=== PATIENT | male | born 1945 ===

== ENCOUNTER 2019-04-04 08:51 | Emergency (ER) | payer OTHER, MEDICARE ==
[2019-04-04 09:35] VITALS: BP 140/80
[2019-04-04 09:50] LABS: Basophils % (Auto) 0.4 % (0.0-1.8); Eosinophils # (Auto) 0.1 K/mm3 (0.0-0.4); Eosinophils % (Auto) 1.2 % (0.0-4.3); Hematocrit 38.8 % (35.5-45.6); Hemoglobin 13.4 gm/dl (11.8-15.2); Lymphocytes # (Auto) 4.1 K/mm3 (1.2-5.4); Lymphocytes % (Auto) 45.7 % (13.4-35.0); Mean Corpuscular HGB Conc 35 % (32-34); Mean Corpuscular Volume 99 fl (84-94); Monocytes # (Auto) 0.6 K/mm3 (0.0-0.8); Monocytes % (Auto) 6.5 % (0.0-7.3); Platelet Count 142 K/mm3 (140-440); Red Blood Count 3.94 M/mm3 (3.65-5.03); Red Cell Distribution Width 13.3 % (13.2-15.2)
[2019-04-04 10:02] LABS: BUN/Creatinine Ratio 19; Blood Urea Nitrogen 19 mg/dL (9-20); Calcium 8.8 mg/dL (8.4-10.2); Hemolysis Index 3
[2019-04-04 10:27] LABS: Bilirubin,Urine NEG (Negative); Blood,Urine MOD (Negative); Color,Urine Yellow (Yellow); Mucus,Urine FEW /HPF; Urobilinogen,Urine < 2.0 mg/dL (<2.0); WBC,Urine < 1.0 /HPF (0.0-6.0)
--- NOTE | 2019-04-04 11:00 | Emergency Department Report ---
HPI - General Chief Complaint: Abdominal Pain Time Seen by Provider: 04/04/19 09:42 - HPI HPI: 73-year-old male presents to the emergency department for 2 different complaints. First, the patient says that she's been having about 4-5 hours of diarrhea since this morning. He had a banana, black coffee and a glass of water and says that he was having consistent diarrhea after that. However this has stopped upon presentation to the emergency department. The patient's , who is in the room as well, says that he really is here for a refill of his psychiatric medications. Neither the patient nor the can give me the diagnosis of the patient's psychiatric history but says that he is on Risperdal, clonazepam and another medication. He has been out of this medication for at least 2 months since they moved here from [place]. He has [employer] insurance but has not yet seen anybody and has an appointment coming up on but a ppears to be for primary care. He has a past medical history that also includes rheumatoid arthritis, hypertension and non-insulin dependent diabetes. Patient denies any suicidal or homicidal ideations or any hallucinations. It sounds like bipolar disorder is a possibility as they describe some behavior that sounds like he is acting both manic and depressed at different times. ED Past Medical Hx - Past Medical History Previous Medical History?: Yes Hx Diabetes: Yes Hx Arthritis: Yes (RA) - Surgical History Past Surgical History?: Yes Additional Surgical History: hernia repair. tonsillectomy. circumcision - Social History Smoking Status: Current Every Day Smoker ED Review of Systems ROS: Stated complaint: ABD PAIN Other details as noted in HPI Comment: All other systems reviewed and negative Constitutional: denies: chills, fever Eyes: denies: eye pain, vision change ENT: denies: ear pain, throat pain Respiratory: denies: cough, shortness of breath Cardiovascular: denies: chest pain, palpitations Gastrointestinal: diarrhea. denies: abdominal pain Genitourinary: denies: urgency, dysuria Musculoskeletal: denies: back pain, arthralgia Skin: denies: rash, lesions Psychiatric: denies: auditory hallucinations, visual hallucinations, homicidal thoughts, suicidal thoughts Physical Exam - Physical Exam Vital Signs: Vital Signs 04/04/19 04/04/19 09:32 09:34 Temperature 97.7 F Pulse Rate 75 Respiratory 18 18 Rate Blood Pressure 140/80 [Left] O2 Sat by Pulse 98 98 Oximetry Physical Exam: GENERAL: The patient is well-developed well-nourished. HENT: Normocephalic. Atraumatic. Patient has moist mucous membranes. EYES: Extraocular motions are intact. NECK: Supple. Trachea is midline. CHEST/LUNGS: Clear to auscultation. There is no respiratory distress noted. HEART/CARDIOVASCULAR: Regular. There is no tachycardia. There is no murmur. ABDOMEN: Abdomen is soft, nontender. Patient has normal bowel sounds. There is no abdominal distention. SKIN: Skin is warm and dry. NEURO: The patient is awake, alert, and oriented. The patient is cooperative. The patient has no focal neurologic deficits. Normal speech. MUSCULOSKELETAL: There is no tenderness or deformity. There is no evidence of acute injury. PSYCH: Patient has some pressured speech and can be labile. ED Course Vital Signs 04/04/19 04/04/19 09:32 09:34 Temperature 97.7 F Pulse Rate 75 Respiratory 18 18 Rate Blood Pressure 140/80 [Left] O2 Sat by Pulse 98 98 Oximetry ED Medical Decision Making - Lab Data Result diagrams: 04/04/19 09:27 04/04/19 09:27 - Medical Decision Making This patient originally came in saying that he was here for some diarrhea but it appears that his main reason was that he was brought in by his roommate and he needs psychiatric medication refill. They were unable to give information about his psychiatric diagnosis but based on his observed behavior and some pre- arrival information, it appears consistent with some type of bipolar disorder or schizoaffective. He denies any auditory or visual hallucinations or any homicidal or suicidal ideations. The patient is friendly/jovial but deathly has some pressured speech and some rambling thought processes. Regarding the diarrhea, the patient says that this has stopped since presentation and has not returned during his ED course. Some labs were obtained that were unremarkable. Vital signs stable throughout his ED course. The patient was seen by the psychiatric instructor substitute cosmetology, Nona, who agrees that the patient does not necessarily meet criteria to be made a 1013 for prior involuntary inpatient psychiatric admission. The patient himself says that he is not interested in voluntary psychiatric admission. While waiting in the emergency department, and between evaluations, the patient does display some intermittent and/or transient agitation but is redirectable. At this time, the patient does appear able to perform ADLs and does not appear to be a danger to himself or others. He has been given a referral for a few different outpatient psychiatric referrals. Since it has been greater than 2 months since he was last on the psychiatric medications, he has been instructed to see an outpatient psychiatry clinic or practice to get restarted. However they have also been instructed to return to the emergency Department with any worsening of his symptoms or any acute distress. - Differential Diagnosis schizophrenia, schizoaffective, bipolar disorder Critical Care Time: No Critical care attestation.: If time is entered above; I have spent that time in minutes in the direct care of this critically ill patient, excluding procedure time. ED Disposition Clinical Impression: Medical clearance for psychiatric admission, Encounter for medication refill Diarrhea Qualifiers: Diarrhea type: unspecified type Qualified Code(s): R19.7 - Diarrhea, unspecifi ed Disposition: DC- TO HOME OR SELFCARE Is pt being admited?: No Condition: Stable Additional Instructions: Please follow up with any of the outpatient psychiatric referrals that you were given regarding a refill of your psychiatric medications. Please continue with your appointment with [place] for your primary care physician. Return to the emergency Department with any worsening of your symptoms or any acute distress. Referrals: [facility] [Outside] - 2-3 Days [facility] [Outside] - 2-3 Days
[2019-04-04 11:17] LABS: Amphetamine Screen,Urine PRESUMPTIVE NEGATIVE; Benzodiazepines Screen,Urine PRESUMPTIVE NEGATIVE; Cannabinoid Screen,Urine PRESUMPTIVE NEGATIVE; Cocaine Screen,Urine PRESUMPTIVE NEGATIVE; Methadone Screen,Urine PRESUMPTIVE NEGATIVE; Opiate Screen,Urine PRESUMPTIVE NEGATIVE
== END 2019-04-04 14:05 | disposition home or self-care (01) ==
LOC: ED 08:51
DX: R19.7 Diarrhea, unspecified (principal); Z76.0 Encounter for issue of repeat prescription; E11.9 Type 2 diabetes mellitus without complications; I10 Essential (primary) hypertension; F32.9 Major depressive disorder, single episode, unspecified; R47.89 Other speech disturbances; M06.9 Rheumatoid arthritis, unspecified; F17.200 Nicotine dependence, unspecified, uncomplicated; Z90.89 Acquired absence of other organs; Z98.890 Other specified postprocedural states
CPT/HCPCS: 36415; 80048; 80307; 80320; 81001; 85025; 99284; G0480

== ENCOUNTER 2019-04-06 15:37 | Emergency (ER) | payer OTHER, MEDICARE ==
--- NOTE | 2019-04-06 15:57 | Emergency Department Report ---
Blank Doc - Documentation Documentation: This is a 73-year-old male that presents with for aggressive behavior. S rom has been out of his psych medications. Denies any SI/HI. This initial assessment/diagnostic orders/clinical plan/treatment(s) is/are subject to change based on patient's health status, clinical progression and re- assessment by fellow clinical providers in the ED. Further treatment and workup at subsequent clinical providers discretion. Patient/guardians urged not to elope from the ED as their condition may be serious if not clinically assessed and managed. Initial orders include: 1- Patient sent to MAIN ED for further evaluation and treatment 2- labs 3- UA
[2019-04-06] MEDS ORDERED: HALDOL ONE (16:57)
[2019-04-06] MEDS ORDERED: ATIVAN ONE (16:57)
[2019-04-06] MEDS ORDERED: ATIVAN IV ONE (17:01)
[2019-04-06] MEDS ORDERED: HALDOL IM ONE ×2 (17:02→19:09)
[2019-04-06 17:26] LABS: Hematocrit 41.5 % (35.5-45.6); Hemoglobin 13.7 gm/dl (11.8-15.2); Mean Corpuscular HGB Conc 33 % (32-34); Mean Corpuscular Volume 101 fl (84-94); Platelet Count 162 K/mm3 (140-440); Red Blood Count 4.12 M/mm3 (3.65-5.03); Red Cell Distribution Width 13.8 % (13.2-15.2)
[2019-04-06 17:48] LABS: BUN/Creatinine Ratio 24; Blood Urea Nitrogen 26 mg/dL (9-20); Calcium 9.5 mg/dL (8.4-10.2); Hemolysis Index 5
[2019-04-06 18:45] LABS: RBC Morphology Normal; Total Cells Counted 100
[2019-04-06 21:09] LABS: Amphetamine Screen,Urine PRESUMPTIVE NEGATIVE; Benzodiazepines Screen,Urine PRESUMPTIVE NEGATIVE; Cannabinoid Screen,Urine PRESUMPTIVE NEGATIVE; Cocaine Screen,Urine PRESUMPTIVE NEGATIVE; Methadone Screen,Urine PRESUMPTIVE NEGATIVE; Opiate Screen,Urine PRESUMPTIVE NEGATIVE
[2019-04-06 21:18] LABS: Bilirubin,Urine NEG (Negative); Blood,Urine NEG (Negative); Color,Urine Yellow (Yellow); Hyaline Casts,Urine 3 /LPF; Mucus,Urine FEW /HPF; Urobilinogen,Urine < 2.0 mg/dL (<2.0)
--- NOTE | 2019-04-06 23:28 | Emergency Department Report ---
ED Psych HPI - General Chief Complaint: Medical Clearance Stated Complaint: MEDICATION REFILL Time Seen by Provider: 04/06/19 15:55 Source: patient, family Mode of arrival: Stretcher Limitations: No Limitations - History of Present Illness Initial Comments: Mr. Nieves is a 73 yo male with hx of HTN, DM, paranoid schizophrenia who presents with delusions and hallucinations for the past several days according to ex-. Mr. Nieves was diagnosed with mental illness since the 1970s. He's had 3 previous hospitalizations for mental illness including one in [facility], [facility] and [facility]. Mr. Nieves recently moved from [place] to [place] 2 months ago to be with his son. His ex- also moved with him. Ex- is his caregiver, clinical decision maker and roommate. Due to agitation and aggressive behavior by Mr. Nieves. Son recently moved of the home. His behavior has escalated since that time. Mr. Nieves states that "she is not my ." Mr. Nieves is receives primary care at [facility]. He has establised care with a primary care physician. He has been without psychiatric medications for the past 2 months. Medications recalled per include Risperdal, clonazepam and amantadine. He has yet to establish care with a psychiatrist. He is currently retired. He previously owned an import-export business. He has 2 children one son and one daughter. Son Lives in [place]. Daughter Lives in [place]. He Has Several Grandchildren. Complaint: other (delusional thoughts hallucinations) -: Gradual, days(s) (3) Associated Psychiatric Symptoms: racing thoughts, auditory hallucinations, delusions History of same: Yes Quality: constant Improves With: none Worsens With: none Context: not taking psychiatric Associated Symptoms: denies other symptoms Treatments Prior to Arrival: none - Related Data Home Medications Medication Instructions Recorded Confirmed Last Taken Unobtainable 04/06/19 04/06/19 Unknown Allergies Allergy/AdvReac Type Severity Reaction Status Date / Time No Known Allergies Allergy Verified 04/06/19 17:00 ED Review of Systems ROS: Stated complaint: MEDICATION REFILL Other details as noted in HPI Comment: All other systems reviewed and negative Constitutional: denies: fever, malaise Respiratory: denies: cough Cardiovascular: denies: chest pain ED Past Medical Hx - Past Medical History Previous Medical History?: Yes Hx Hypertension: Yes Hx Diabetes: Yes Hx Arthritis: Yes (RA) Hx Psychiatric Treatment: Yes (schizophrenia,bipolar) - Surgical History Past Surgical History?: Yes Additional Surgical History: hernia repair. tonsillectomy. circumcision - Social History Smoking Status: Current Every Day Smoker Substance Use Type: None - Medications Home Medications: Home Medications Medication Instructions Recorded Confirmed Last Taken Type Unobtainable 04/06/19 04/06/19 Unknown History ED Physical Exam - General Limitations: Language Barrier General appearance: alert, in no apparent distress, other (agitated and appears healthy) - Head Head exam: Present: atraumatic, normocephalic - Eye Eye exam: Present: normal appearance - ENT ENT exam: Present: mucous membranes moist - Neck Neck exam: Present: normal inspection, full ROM - Respiratory Respiratory exam: Present: normal lung sounds bilaterally. Absent: respiratory distress, wheezes, rhonchi - Cardiovascular Cardiovascular Exam: Present: regular rate, normal rhythm, normal heart sounds. Absent: systolic murmur, diastolic murmur, rubs, gallop - GI/Abdominal GI/Abdominal exam: Present: soft, normal bowel sounds. Absent: distended, tenderness, guarding, rebound - Rectal Rectal exam: Present: deferred - Extremities Exam Extremities exam: Present: normal inspection - Neurological Exam Neurological exam: Present: alert, oriented X3 - Psychiatric Psychiatric exam: Present: normal affect, normal mood, agitated - Skin Skin exam: Present: warm, dry, intact, normal color. Absent: rash ED Course Vital Signs 04/06/19 15:55 Temperature 97.8 F Pulse Rate 87 Respiratory 87 H Rate Blood Pressure 141/92 O2 Sat by Pulse 98 Oximetry ED Medical Decision Making - Lab Data Result diagrams: 04/06/19 17:18 04/06/19 17:18 Laboratory Results - last 24 hr 04/06/19 04/06/19 04/06/19 17:18 17:18 17:18 WBC 11.3 H RBC 4.12 Hgb 13.7 Hct 41.5 MCV 101 H MCH 33 H MCHC 33 RDW 13.8 Plt Count 162 Lymph # Construction Stonemason Add Manual Diff Complete Total Counted 100 Seg Neuts % (Manual) 48.0 Band Neutrophils % 0 Lymphocytes % (Manual) 42.0 H Reactive Lymphs % (Man) 0 Monocytes % (Manual) 8.0 H Eosinophils % (Manual) 1.0 Basophils % (Manual) 1.0 Metamyelocytes % 0 Myelocytes % 0 Promyelocytes % 0 Blast Cells % 0 Nucleated RBC % Not Reportable Seg Neutrophils # Man 5.4 Band Neutrophils # 0.0 Lymphocytes # (Manual) 4.7 Abs React Lymphs (Man) 0.0 Monocytes # (Manual) 0.9 H Eosinophils # (Manual) 0.1 Basophils # (Manual) 0.1 Metamyelocytes # 0.0 Myelocytes # 0.0 Promyelocytes # 0.0 Blast Cells # 0.0 WBC Morphology Not Reportable Hypersegmented Neuts Not Reportable Hyposegmented Neuts Not Reportable Hypogranular Neuts Not Reportable Smudge Cells Not Reportable Toxic Granulation Not Reportable Toxic Vacuolation Not Reportable Dohle Bodies Not Reportable Pelger-Huet Anomaly Not Reportable Paulo Rods Not Reportable Platelet Estimate Not Reportable Clumped Platelets Not Reportable Plt Clumps, EDTA Not Reportable Large Platelets Not Reportable Giant Platelets Not Reportable Platelet Satelliting Not Reportable Plt Morphology Comment Not Reportable RBC Morphology Normal Dimorphic RBCs Not Reportable Polychromasia Not Reportable Hypochromasia Not Reportable Poikilocytosis Not Reportable Anisocytosis Not Reportable Microcytosis Not Reportable Macrocytosis Not Reportable Spherocytes Not Reportable Pappenheimer Bodies Not Reportable Sickle Cells Not Reportable Target Cells Not Reportable Tear Drop Cells Not Reportable Ovalocytes Not Reportable Helmet Cells Not Reportable Wu-Normal Bodies Not Reportable [place] Rings Not Reportable Julio Cesar Cells Not Reportable Bite Cells Not Reportable Crenated Cell Not Reportable Elliptocytes Not Reportable Acanthocytes (Spur) Not Reportable Rouleaux Not Reportable Hemoglobin C Crystals Not Reportable Schistocytes Not Reportable Malaria parasites Not Reportable Moi Bodies Not Reportable Hem Pathologist Commnt No Sodium 138 Potassium 3.6 Chloride 99.5 Carbon Dioxide 18 L Anion Gap 24 BUN 26 H Creatinine 1.1 Estimated GFR > 60 BUN/Creatinine Ratio 24 Glucose 238 H Calcium 9.5 Urine Color Urine Turbidity Urine pH Ur Specific [place] Urine Protein Urine Glucose (UA) Urine Ketones Urine Blood Urine Nitrite Urine Bilirubin Urine Urobilinogen Ur Leukocyte Esterase Urine WBC (Auto) Urine RBC (Auto) Hyaline Casts Urine Mucus Salicylates < 0.3 L Urine Opiates Screen Urine Methadone Screen Acetaminophen Ur Barbiturates Screen Ur Phencyclidine Scrn Ur Amphetamines Screen U Benzodiazepines Scrn Urine Cocaine Screen U Marijuana (THC) Screen Drugs of Abuse Note Plasma/Serum Alcohol 04/06/19 04/06/19 04/06/19 17:18 17:18 20:13 WBC RBC Hgb Hct MCV MCH MCHC RDW Plt Count Lymph # Add Manual Diff Total Counted Seg Neuts % (Manual) Band Neutrophils % Lymphocytes % (Manual) Reactive Lymphs % (Man) Monocytes % (Manual) Eosinophils % (Manual) Basophils % (Manual) Metamyelocytes % Myelocytes % Promyelocytes % Blast Cells % Nucleated RBC % Seg Neutrophils # Man Band Neutrophils # Lymphocytes # (Manual) Abs React Lymphs (Man) Monocytes # (Manual) Eosinophils # (Manual) Basophils # (Manual) Metamyelocytes # Myelocytes # Promyelocytes # Blast Cells # WBC Morphology Hypersegmented Neuts Hyposegmented Neuts Hypogranular Neuts Smudge Cells Toxic Granulation Toxic Vacuolation Dohle Bodies Pelger-Huet Anomaly Paulo Rods Platelet Estimate Clumped Platelets Plt Clumps, EDTA Large Platelets Giant Platelets Platelet Satelliting Plt Morphology Comment RBC Morphology Dimorphic RBCs Polychromasia Hypochromasia Poikilocytosis Anisocytosis Microcytosis Macrocytosis Spherocytes Pappenheimer Bodies Sickle Cells Target Cells Tear Drop Cells Ovalocytes Helmet Cells Wu-Normal Bodies [place] Rings [place] Cells Bite Cells Crenated Cell Elliptocytes Acanthocytes (Spur) Rouleaux Hemoglobin C Crystals Schistocytes Malaria parasites Moi Bodies Hem Pathologist Commnt Sodium Potassium Chloride Carbon Dioxide Anion Gap BUN Creatinine Estimated GFR BUN/Creatinine Ratio Glucose Calcium Urine Color Yellow Urine Turbidity Clear Urine pH 5.0 Ur Specific [place] 1.013 Urine Protein 30 mg/dl Urine Glucose (UA) Neg Urine Ketones Neg Urine Blood Neg Urine Nitrite Neg Urine Bilirubin Neg Urine Urobilinogen < 2.0 Ur Leukocyte Esterase Neg Urine WBC (Auto) 1.0 Urine RBC (Auto) 3.0 Hyaline Casts 3 Urine Mucus Few Salicylates Urine Opiates Screen Urine Methadone Screen Acetaminophen < 5.0 L Ur Barbiturates Screen Ur Phencyclidine Scrn Ur Amphetamines Screen U Benzodiazepines Scrn Urine Cocaine Screen U Marijuana (THC) Screen Drugs of Abuse Note Plasma/Serum Alcohol < 0.01 04/06/19 20:13 WBC RBC Hgb Hct MCV MCH MCHC RDW Plt Count Lymph # Add Manual Diff Total Counted Seg Neuts % (Manual) Band Neutrophils % Lymphocytes % (Manual) Reactive Lymphs % (Man) Monocytes % (Manual) Eosinophils % (Manual) Basophils % (Manual) Metamyelocytes % Myelocytes % Promyelocytes % Blast Cells % Nucleated RBC % Seg Neutrophils # Man Band Neutrophils # Lymphocytes # (Manual) Abs React Lymphs (Man) Monocytes # (Manual) Eosinophils # (Manual) Basophils # (Manual) Metamyelocytes # Myelocytes # Promyelocytes # Blast Cells # WBC Morphology Hypersegmented Neuts Hyposegmented Neuts Hypogranular Neuts Smudge Cells Toxic Granulation Toxic Vacuolation Dohle Bodies Pelger-Huet Anomaly Paulo Rods Platelet Estimate Clumped Platelets Plt Clumps, EDTA Large Platelets Giant Platelets Platelet Satelliting Plt Morphology Comment RBC Morphology Dimorphic RBCs Polychromasia Hypochromasia Poikilocytosis Anisocytosis Microcytosis Macrocytosis Spherocytes Pappenheimer Bodies Sickle Cells Target Cells Tear Drop Cells Ovalocytes Helmet Cells Wu-Normal Bodies [place] Rings Julio Cesar Cells Bite Cells Crenated Cell Elliptocytes Acanthocytes (Spur) Rouleaux Hemoglobin C Crystals Schistocytes Malaria parasites Moi Bodies Hem Pathologist Commnt Sodium Potassium Chloride Carbon Dioxide Anion Gap BUN Creatinine Estimated GFR BUN/Creatinine Ratio Glucose Calcium Urine Color Urine Turbidity Urine pH Ur Specific [place] Urine Protein Urine Glucose (UA) Urine Ketones Urine Blood Urine Nitrite Urine Bilirubin Urine Urobilinogen Ur Leukocyte Esterase Urine WBC (Auto) Urine RBC (Auto) Hyaline Casts Urine Mucus Salicylates Urine Opiates Screen Presumptive negative Urine Methadone Screen Presumptive negative Acetaminophen Ur Barbiturates Screen Presumptive negative Ur Phencyclidine Scrn Presumptive negative Ur Amphetamines Screen Presumptive negative U Benzodiazepines Scrn Presumptive negative Urine Cocaine Screen Presumptive negative U Marijuana (THC) Screen Presumptive negative Drugs of Abuse Note Disclamer Plasma/Serum Alcohol - Medical Decision Making Mr. Nieves Presents with acute psychosis. He has not taken psychiatric medication for 2 months since moving from [place]. He has yet to establish psychiatric care. He has agitation, disorganized thought pattern. Poor insight. Appears to respond to internal stimuli. Due to severe symptoms, I have placed Mr. Nieevs on involuntary hold with 1013 protocol. Awaiting treatment recommendations by our psychiatric team. I have reviewed labs which are unremarkable. Mr. Nieves is medically clear for psychiatric care. Critical care attestation.: If time is entered above; I have spent that time in minutes in the direct care of this critically ill patient, excluding procedure time. ED Disposition Clinical Impression: Acute psychosis, Paranoid schizophrenia Is pt being admited?: No Does the pt Need Aspirin: No Condition: Stable
--- NOTE | 2019-04-07 09:51 | Consultation ---
History of Present Illness - Reason for Consult Consult date: 04/07/19 Reason for consult: Mental Health Evaluation Requesting physician: AVERY DE PAZ - Chief Complaint Chief complaint: "I need my Saw Wil" - History of Present Psychiatric Illness 73 y.o. male who presented to the ER for hallucinations and delusions per his ex-. The patient was seen in the ER 2 days ago for diarrhea. Today the patient was calm and cooperative during the assessment. He was able to answer most questions logically when asked. He stated that he came to the ER to get Saw Wil for his prostate. He was asked about his mental health, he would not confirm or deny a mental health dx. Per his assigned nurse, no behavioral disturbances by the patient since she stated her shift. He denies SI/HI's and AVH's. He denies erratic sleep and a poor appetite. He denies recreational drug use and alcohol consumption (etoh). Medications and Allergies Allergies Allergy/AdvReac Type Severity Reaction Status Date / Time No Known Allergies Allergy Verified 04/06/19 17:00 Home Medications Medication Instructions Recorded Confirmed Last Taken Type Unobtainable 04/06/19 04/06/19 Unknown History Past psychiatric history - Past Medical History Past Medical History: hypertension, other (RA) Past Surgical History: No surgical history - past Psychiatric treatment and history psychiatric treatment history: Per the record mood/psychotic do. Denies a fam psy hx. - Social History Social history: lives with family Mental Status Exam - Vital signs Last Vital Signs Temp 97.8 F 04/07/19 07:00 Pulse 78 04/07/19 07:00 Resp 20 04/07/19 07:00 BP 139/58 04/07/19 07:00 Pulse Ox 100 04/07/19 07:00 - Exam Narrative exam: MSE: Appearance: calm, cooperative Behavior: regular eye contact Speech: regular rate and low tone Mood: "okay" Affect: congruent to mood Thought Process: circumstantial Thought Content: denies HI's and AVH's Motor Activity: ambulatory Cognition: A/O x 3 Insight: variable Judgment: variable to fair Results Result Diagrams: 04/06/19 17:18 04/06/19 17:18 Abnormal lab results 04/06/19 04/06/19 04/06/19 Range/Units 17:18 17:18 17:18 WBC 11.3 H (4.5-11.0) K/mm3 MCV 101 H (84-94) fl MCH 33 H (28-32) pg Lymphocytes % (Manual) 42.0 H (13.4-35.0) % Monocytes % (Manual) 8.0 H (0.0-7.3) % Monocytes # (Manual) 0.9 H (0.0-0.8) K/mm3 Carbon Dioxide 18 L (22-30) mmol/L BUN 26 H (9-20) mg/dL Glucose 238 H (75-100) mg/dL Salicylates < 0.3 L (2.8-20.0) mg/dL Acetaminophen (10.0-30.0) ug/mL 04/06/19 Range/Units 17:18 WBC (4.5-11.0) K/mm3 MCV (84-94) fl MCH (28-32) pg Lymphocytes % (Manual) (13.4-35.0) % Monocytes % (Manual) (0.0-7.3) % Monocytes # (Manual) (0.0-0.8) K/mm3 Carbon Dioxide (22-30) mmol/L BUN (9-20) mg/dL Glucose (75-100) mg/dL Salicylates (2.8-20.0) mg/dL Acetaminophen < 5.0 L (10.0-30.0) ug/mL All other labs normal. Assessment and Plan Assessment and plan: Impression: Hx of Psychotic/Mood DO per the record. Today the patient was calm and cooperative during the assessment. Recommendation/Plan: Continue 1013 and gather collateral information from the patient's roller operator. Dispo: The patient was referred to inpatient psy services. Staffed with Dr Aniyah oLgan.
[2019-04-07] MEDS ORDERED: HALDOL IM ONE (09:56)
[2019-04-07] MEDS ORDERED: HALDOL ONE (09:57)
[2019-04-07 14:44] VITALS: BP 140/62
== END 2019-04-07 18:58 ==
LOC: ED 15:37
DX: F25.0 Schizoaffective disorder, bipolar type (principal); I10 Essential (primary) hypertension; E11.9 Type 2 diabetes mellitus without complications; M06.9 Rheumatoid arthritis, unspecified; F17.200 Nicotine dependence, unspecified, uncomplicated; Z90.89 Acquired absence of other organs; Z98.890 Other specified postprocedural states
CPT/HCPCS: 36415; 80048; 80307; 81001; 85007; 85025; 96372; 96374; 99285; J1630; J2060; 80320; G0480